=== PATIENT | male | born 1970 | race American Indian/Alaskan Native ===

== ENCOUNTER 2018-03-12 17:25 | Emergency (ER) | payer OTHER ==
[2018-03-12 17:35] VITALS: BP 162/77
[2018-03-12] MEDS ORDERED: LEVAQUIN PO ONE (18:45)
--- NOTE | 2018-03-12 18:59 | Emergency Department Report ---
Minor Respiratory - HPI Chief Complaint: Upper Respiratory Infection Stated Complaint: COUGH CHEST CONGESTION Time Seen by Provider: 03/12/18 18:12 Duration: 4 Days Pain Location: Throat, Nose, Chest Severity: mild Minor Respiratory: Yes Rhinorrhea, Yes Sore Throat, Yes Able to Tolerate Fluids , Yes Cough, No Sick Contacts, No Hemoptysis (brown yello mucus production), No Chest Pain (chest irritation with cough. ), No Fever ED Review of Systems ROS: Stated complaint: COUGH CHEST CONGESTION Other details as noted in HPI Constitutional: denies: chills, fever Eyes: denies: eye pain, eye discharge, vision change ENT: throat pain, congestion. denies: ear pain Respiratory: cough. denies: shortness of breath, wheezing Cardiovascular: denies: chest pain, palpitations Endocrine: no symptoms reported Gastrointestinal: denies: abdominal pain, nausea, diarrhea Genitourinary: denies: urgency, dysuria Musculoskeletal: denies: back pain, joint swelling, arthralgia Skin: denies: rash, lesions Neurological: denies: headache, weakness, paresthesias Psychiatric: denies: anxiety, depression Hematological/Lymphatic: denies: easy bleeding, easy bruising ED Past Medical Hx - Past Medical History Previous Medical History?: No - Surgical History Past Surgical History?: No - Social History Smoking Status: Never Smoker Substance Use Type: Alcohol - Medications Home Medications: Home Medications Medication Instructions Recorded Confirmed Last Taken Type HYDROcodone/APAP 10-325 [[place] 1 each PO Q4-6H PRN #10 tablet 04/06/15 Unknown Rx 10/325] Promethazine [Phenergan TAB] 25 mg PO Q6HR PRN #10 tab 04/06/15 Unknown Rx Ranitidine HCl [Zantac 150 MG TAB] 150 mg PO Q12H #20 tablet 04/06/15 Unknown Rx ALBUTEROL Inhaler (OR & NICU) 1 puff IH Q4H PRN #1 inha 03/12/18 Unknown Rx [Proair] guaiFENesin/CODEINE [Robitussin AC] 5 ml PO Q6H PRN #120 oral.liqd 03/12/18 Unknown Rx levoFLOXacin [Levaquin TAB] 500 mg PO QDAY #7 tablet 03/12/18 Unknown Rx Minor Respiratory Exam - Exam General: Vital signs noted. No distress. Alert and acting appropriately. HEENT: Yes Moist Mucous Membranes, Yes Rhinorrhea, No Pharyngeal Erythema, No Pharyngeal Exudates, No Conjuctival Injection, No Frontal Tenderness, No Maxillary Tenderness Ear: Neither TM Bulge, Neither TM Erythema, Neither EAC Pain, Neither EAC Discharge Neck: Yes Supple, No Adenopathy Lungs: Yes Good Air Exchange, Yes Cough, No Wheezes, No Ronchi, No Stridor, No Labored Respirations, No Retractions, No Use of Accessory Muscles, No Other Abnormal Lung Sounds Heart: Yes Regular, No Murmur Abdomen: Yes Normal Bowel Sounds, No Tenderness, No Peritoneal Signs Skin: No Rash, No Edema Neurologic: Alert and oriented, no deficits. Musculoskeletal: Unremarkable. ED Course Vital Signs 03/12/18 17:31 Temperature 98.5 F Pulse Rate 81 Respiratory 20 Rate Blood Pressure 162/77 O2 Sat by Pulse 98 Oximetry ED Medical Decision Making - Radiology Data interpreted by me: Increase interstitial markings and infiltrate noted to the left lobe to my view pending official radiology read - Medical Decision Making Case and findings discussed with Dr. Ward feels plan is to discharge patient with oral medication and close follow-up. He is hemodynamically and respiratory stable. No distress. Able to ambulate and talk without dyspnea Critical care attestation.: If time is entered above; I have spent that time in minutes in the direct care of this critically ill patient, excluding procedure time. ED Disposition Clinical Impression: Cough, Infiltrate of left lung present on chest x-ray Disposition: DC-01 TO HOME OR SELFCARE Is pt being admited?: No Does the pt Need Aspirin: No Condition: Stable Instructions: Community-acquired Pneumonia (ED), Cold Symptoms (ED), Allergic Rhinitis (ED) Prescriptions: ALBUTEROL Inhaler (OR & NICU) [Proair] 1 puff IH Q4H PRN #1 inha PRN Reason: wheezeand cough guaiFENesin/CODEINE [Robitussin AC] 5 ml PO Q6H PRN #120 oral.liqd PRN Reason: Cough levoFLOXacin [Levaquin TAB] 500 mg PO QDAY #7 tablet Referrals: [facility] [Provider Group] - 3-5 Days
--- NOTE | 2018-03-12 20:14 | XRay Report ---
FINAL REPORT PROCEDURE: XR CHEST ROUTINE 2V TECHNIQUE: PA and lateral chest radiographs were obtained. CPT 74236 HISTORY: COUGH COMPARISON: No prior studies are available for comparison. FINDINGS: Heart: Normal. Mediastinum/Vessels: Normal. Lungs/Pleural space: Multiple irregular ill-defined patchy densities are noted involving bilateral lungs. Bilateral pleural spaces are clear. Bony thorax: No acute osseous abnormality. Other: Two irregular metallic foreign body fragments are noted in the anterior right hemithorax skin and subcutaneous tissues IMPRESSION: Multiple patchy densities bilateral lungs are consistent with the pneumonia. Small metallic foreign body fragments in the anterior right chest wall.
== END 2018-03-12 19:16 | disposition home or self-care (01) ==
LOC: ED 17:25
DX: R91.8 Other nonspecific abnormal finding of lung field (principal); R05 Cough; J34.89 Other specified disorders of nose and nasal sinuses; R07.0 Pain in throat
CPT/HCPCS: 71046; 99283